=== PATIENT | male | born 1975 | race African-American/Black ===

== ENCOUNTER 2020-04-15 19:01 | Inpatient (IN) ==
[2020-04-15] MEDS ORDERED: IOPAMIDOL 100 ML BOTTLE IV ONE (19:02)
[2020-04-15] MEDS ORDERED: PHENobarb/HYOSCY/ATROPINE/SCOP 1 DOSE BOTTLE PO ONE (19:30)
[2020-04-15] MEDS ORDERED: ONDANSETRON 4 MG/2 ML VIAL IV ONE (19:30)
[2020-04-15] MEDS ORDERED: PANTOPRAZOLE 40 MG VIAL IV ONE (19:30)
--- NOTE | 2020-04-15 19:50 | XRay Report ---
INDICATION: Chest Pain TECHNIQUE: AP portable upright chest x-ray COMPARISON: Previous examination dated 10/23/2016 FINDINGS: Lungs:Lungs are negative. No focal pulmonary parenchymal infiltrate or mass Heart, vascular:No significant cardiomegaly. Pulmonary vascularity is normal. No pulmonary edema or pulmonary congestion Mediastinum, panfilo:No mediastinal widening. No hilar mass Pleura:No pleural fluid. No pleural-based mass or calcification Skeletal:Negative. IMPRESSION: Negative AP chest x-ray. No interval change Interpreted and Authenticated by: Ezequiel Suarez 04/15/20
--- NOTE | 2020-04-15 19:51 | Emergency Department Note ---
Chest Pain HPI - General Chief Complaint: Chest Pain Stated Complaint: chest pain Time Seen by Provider: 04/15/20 19:05 Source: patient Mode of arrival: ambulatory Limitations: no limitations - History of Present Illness HPI Narrative: 44-year-old male with epigastric pain that is severe. It doubled him over today after taking his high blood pressure medicines. He has not been able to eat because of the severe pain. He is able to drink some water though. He has not been taking NSAIDs because his nurse practitioner at the [facility] clinic thought he might have an ulcer. He has been losing weight so they are concerned about gallbladder issues as well. He was seen the day before yesterday for similar problem but his pain had resolved by the time he got here. No work-up was done then. I reviewed that note from Dr. Musa. No nausea vomiting diarrhea. He has never had an upper endoscopy before - Related Data Home Medications Medication Instructions Recorded Confirmed Omeprazole [PriLOSEC] 20 mg PO DAILY 04/15/20 04/15/20 Sucralfate [Carafate] 1 gm PO QID 04/15/20 04/15/20 methylPREDNISolone [Medrol Dose 4 mg PO DAILY 04/15/20 04/15/20 Pack] Previous Rx's Medication Instructions Recorded Lisinopril/Hctz 20/12.5MG 2 tab PO DAILY #60 tab 04/14/20 [Zestoretic 20/12.5MG] Allergies Allergy/AdvReac Type Severity Reaction Status Date / Time No Known Drug Allergies Allergy Verified 04/13/20 22:50 Review of Systems All systems ED: reviewed and negative except as stated. Chest Pain PMH - Past Medical History Attestation: Yes: The following information was validated with the patient. [facility] Narrative: Family History (Last Reviewed 03/03/19 @ 18:13 by Claudine Martinez PA-C) Mother Diabetes mellitus Obesity Coronary arteriosclerosis Hypertensive disorder Brother Obesity Medical History (Last Reviewed 03/03/19 @ 18:13 by Claudine Martinez PA-C) Skin tag (Chronic) Allergic rhinitis (Chronic) Essential hypertension (Chronic) Disorder of tympanic membrane (Chronic) Obesity (Chronic) Diabetes mellitus (Chronic) Vasectomy evaluation (Chronic) Past Surgical History (Last Reviewed 03/03/19 @ 18:13 by Claudine Martinez PA-C) History of appendectomy (Chronic) Medical history: Reports: hypertension - Social History smoking status: Never smoker Physical Exam Overweight male no acute distress resting. Alert oriented able to answer questions appropriately. Normocephalic atraumatic. Conjunctive are clear sclerae white nonicteric. No nasal discharge or congestion. Oropharynx is pink and moist. Neck is supple without lymphadenopathy or thyromegaly. Heart is regular rate and rhythm no murmur appreciated. Lungs clear to auscultation bilaterally without wheezes rales rhonchi or respiratory distress. Abdomen is soft nontender nondistended except for the epigastrium which is mildly tender. No Parsons sign. No CVA tenderness. No peritoneal signs or guarding. No pedal edema. +2 radial pulse. Limitations: no limitations Course Vital Signs Temperature 98.1 F 04/15/20 19:02 Pulse Rate 91 H 04/15/20 19:02 Respiratory Rate 18 04/15/20 19:02 Blood Pressure 133/89 04/15/20 19:02 Pulse Oximetry (%) 98 04/15/20 19:02 Temperature 98.1 F 04/15/20 19:02 Pulse Rate 65 04/15/20 22:43 Respiratory Rate 22 04/15/20 22:43 Blood Pressure 127/83 04/15/20 22:31 Pulse Oximetry (%) 96 04/15/20 22:43 Chest Pain - Lab Data Lab results reviewed: Yes I reviewed the patient's lab results. Result diagrams: 04/15/20 19:30 04/15/20 19:30 Lab Results 04/15/20 04/15/20 04/15/20 Range/Units 19:30 19:30 19:30 WBC 11.6 H (4.50-11.00) K/mcL RBC 4.18 L (4.63-6.08) M/mcL Hgb 12.9 L (13.7-17.5) g/dL Hct 39.8 L (40.1-51.0) % MCV 95.2 (80.0-100.0) fL MCH 30.9 (26.0-34.0) pg MCHC 32.4 (31.0-36.0) g/dL RDW 12.8 (11.5-14.5) % Plt Count 356 (140-440) K/mcL MPV 11.0 H (7.4-10.4) fL Gran % 76.9 (38.0-78.0) % Lymph % (Auto) 14.9 L (15.5-49.0) % [place] % (Auto) 8.0 (1.0-12.0) % Eos % (Auto) 0 (0.0-7.0) % Baso % (Auto) 0.2 (0.0-2.0) % Gran # 8.95 H (1.80-8.00) K/mcL Lymph # (Auto) 1.74 (1.50-4.80) K/mcL [place] # (Auto) 0.93 H (0.10-0.90) K/mcL Eos # (Auto) 0 (0.00-0.70) K/mcL Baso # (Auto) 0.02 (0.00-0.30) K/mcL VBG Lactic Acid (0.5-2.0) mmol/L Sodium 141 (133-145) mmol/L Potassium 4.0 (3.3-5.1) mmol/L Chloride 101 (96-108) mmol/L Carbon Dioxide 23 (22-30) mmol/L Anion Gap 17.0 H (8-16) BUN 15 (6-20) mg/dl Creatinine 1.3 H (0.7-1.2) mg/dl GFR Calculation 66 Glucose 107 H (70-105) mg/dL Calcium 9.8 (8.6-10.4) mg/dl Total Bilirubin 0.2 (0.0-1.0) mg/dL AST 14 (0-37) U/l ALT 9 (0-40) U/l Alkaline Phosphatase 67 (39-117) U/L Total Creatine Kinase 104 (24-195) IU/L CK-MB (CK-2) 1.5 (0-4.9) ng/ml Myoglobin 33 (28-72) ng/ml Troponin T < 0.01 (0-0.03) ng/ml Total Protein 7.8 (5.9-8.4) gm/dL Albumin 4.3 (3.2-5.2) gm/dL Globulin 3.5 (2.2-3.7) gm/dL Albumin/Globulin Ratio 1.2 (1.0-2.3) Lipase (7-60) U/L 04/15/20 04/15/20 Range/Units 19:32 19:32 WBC (4.50-11.00) K/mcL RBC (4.63-6.08) M/mcL Hgb (13.7-17.5) g/dL Hct (40.1-51.0) % MCV (80.0-100.0) fL MCH (26.0-34.0) pg MCHC (31.0-36.0) g/dL RDW (11.5-14.5) % Plt Count (140-440) K/mcL MPV (7.4-10.4) fL Gran % (38.0-78.0) % Lymph % (Auto) (15.5-49.0) % [place] % (Auto) (1.0-12.0) % Eos % (Auto) (0.0-7.0) % Baso % (Auto) (0.0-2.0) % Gran # (1.80-8.00) K/mcL Lymph # (Auto) (1.50-4.80) K/mcL [place] # (Auto) (0.10-0.90) K/mcL Eos # (Auto) (0.00-0.70) K/mcL Baso # (Auto) (0.00-0.30) K/mcL VBG Lactic Acid 1.5 (0.5-2.0) mmol/L Sodium (133-145) mmol/L Potassium (3.3-5.1) mmol/L Chloride (96-108) mmol/L Carbon Dioxide (22-30) mmol/L Anion Gap (8-16) BUN (6-20) mg/dl Creatinine (0.7-1.2) mg/dl GFR Calculation Glucose (70-105) mg/dL Calcium (8.6-10.4) mg/dl Total Bilirubin (0.0-1.0) mg/dL AST (0-37) U/l ALT (0-40) U/l Alkaline Phosphatase (39-117) U/L Total Creatine Kinase (24-195) IU/L CK-MB (CK-2) (0-4.9) ng/ml Myoglobin (28-72) ng/ml Troponin T (0-0.03) ng/ml Total Protein (5.9-8.4) gm/dL Albumin (3.2-5.2) gm/dL Globulin (2.2-3.7) gm/dL Albumin/Globulin Ratio (1.0-2.3) Lipase 19 (7-60) U/L - Radiology Data Radiology results reviewed: Yes I reviewed the patient's radiology results. Chest x-ray shows no acute change CT scan of the abdomen and pelvis shows acute cholelithiasis with pericolic stranding suggestive of cholecystitis. CBD is normal - EKG Data EKG attestation: Yes I reviewed and interpreted this EKG. EKG results narrative: EKG shows ST elevation upsloping in leads V1 and V2. Machine read calls it benign early repolarization which is likely is. It may be criteria for LVH as well. Sinus rhythm Disposition Pt seen by COMPO CONVEYOR OPERATOR/PA only: No Clinical Impression: Cholelithiasis and acute cholecystitis without obstruction Summary: Epigastric/chest pain likely GI given that it is worse with him eating certain things like pills food etc. Consider ulcer/gastritis versus esophagitis versus musculoskeletal versus cardiac versus pulmonary. EKG is with likely benign early repolarization however this could be cardiac as he does have risk factors of prediabetes hypertension and obesity. Gave Zofran Protonix and GI cocktail. Chest x-ray is unrevealing Medicines did not help. He is still complaining of severe belly pain between his umbilicus and epigastric area. Troponin is negative as is lipase he does however have a leukocytosis. CT scan of the abdomen pelvis with contrast is ordered. Dilaudid for pain. Start IV fluids He did get some relief with Dilaudid. CT scan shows cholelithiasis with cholecystitis. Discussed case with Dr. Pawel Chery, general surgeon. He agreed to accept the patient for further care and evaluation in the hospital. Likely will have his gallbladder out tomorrow morning. I will write holding orders. He asked for some food as he had not ate all day-he will be n.p.o. after midnight. We brought him a lunch box but his stomach pain and nausea would not let him eat Disposition: Xfer As Inpt ([facility]) Condition: Fair Referrals: [facility] [Primary Care Provider] - Pawel Chery MD [Physician] -
[2020-04-15 20:43] LABS: Myoglobin 33 ng/ml (28-72)
[2020-04-15 20:45] LABS: ALT/SGPT 9 U/l (0-40); AST/SGOT 14 U/l (0-37); Albumin 4.3 gm/dL (3.2-5.2); Albumin/Globulin Ratio 1.2 (1.0-2.3); Alkaline Phosphatase 67 U/L (39-117); Bilirubin,Total 0.2 mg/dL (0.0-1.0); Blood Urea Nitrogen 15 mg/dl (6-20); Calcium 9.8 mg/dl (8.6-10.4); Carbon Dioxide 23 mmol/L (22-30); Chloride 101 mmol/L (96-108); Creatine Kinase 104 IU/L (24-195); Creatine Kinase MB 1.5 ng/ml (0-4.9); Globulin 3.5 gm/dL (2.2-3.7); Glomerular Filtration Rate 66; Glucose 107 mg/dL (70-105)
[2020-04-15 20:47] LABS: Basophils # (Auto) 0.02 K/mcL (0.00-0.30); Basophils % (Auto) 0.2 % (0.0-2.0); Eosinophils # (Auto) 0 K/mcL (0.00-0.70); Eosinophils % (Auto) 0 % (0.0-7.0); Granulocytes % (Auto) 76.9 % (38.0-78.0); Hematocrit 39.8 % (40.1-51.0); Hemoglobin 12.9 g/dL (13.7-17.5); Lymphocytes # (Auto) 1.74 K/mcL (1.50-4.80); Lymphocytes % (Auto) 14.9 % (15.5-49.0); Mean Cell Volume 95.2 fL (80.0-100.0); Mean Corpuscular HGB Conc 32.4 g/dL (31.0-36.0); Monocytes # (Auto) 0.93 K/mcL (0.10-0.90); Platelet Count 356 K/mcL (140-440); RBC 4.18 M/mcL (4.63-6.08); Red Cell Distribution Width 12.8 % (11.5-14.5); WBC 11.6 K/mcL (4.50-11.00)
[2020-04-15] MEDS ORDERED: 0.9 % SODIUM CHLORIDE 1,000 ML IV ONE (20:49)
[2020-04-15] MEDS: HYDROmorphone 0.5 MG/0.5 ML SYRINGE IV PRN (21:03)
[2020-04-15] MEDS ORDERED: ONDANSETRON 4 MG/2 ML VIAL IV PRN (23:12)
[2020-04-16] MEDS: HYDROmorphone 0.5 MG/0.5 ML SYRINGE IV PRN ×3 (02:25→09:00)
--- NOTE | 2020-04-16 05:57 | Cat Scan Report ---
INDICATION: severe epigastric pain COMPARISON: CT scan dated 02/21/2012 TECHNIQUE: Axial images were obtained through the abdomen and pelvis. Sagittally and coronally reformatted images. 80 mL Isovue 370 injected intravenously. Oral contrast was not administered FINDINGS: The examination was initially interpreted by [facility] Lung bases:Negative. No pulmonary parenchymal nodule. No pleural fluid or pericardial fluid Liver:Negative. No focal intrahepatic mass. No focal abnormality. Liver contour is smooth. No evidence for cirrhosis Gallbladder, bilary:Gallbladder is abnormal. There are calcified gallstones. There is mild gallbladder wall thickening and cholecystitis is possible. Gallbladder ultrasound may be of benefit. No dilated bile ducts. No evidence for choledocholithiasis Spleen:No splenomegaly. Normal enhancement of splenic and portal veins. Pancreas:No pancreatic mass. No peripancreatic abnormality Adrenal glands:Negative Kidneys, ureters, bladder:No solid or cystic renal mass. No hydronephrosis. No obstructing calculi. There is no hydroureter. No ureteral stone No bladder calculi or detectable mass Gastrointestinal:No detectable colonic mass. There is no diverticulitis. Small bowel is negative. No mechanical small bowel obstruction. Stomach and duodenum are unremarkable Appendix: The appendix is removed Vascular:Negative abdominal aorta. Superior mesenteric artery and celiac trunk are normal. Normal opacification of the inferior mesenteric artery Lymphatic:No retroperitoneal or mesenteric adenopathy Mesentery, peritoneum: No free intraperitoneal fluid. No mesenteric or retroperitoneal mass. Reproductive:No significant prostatic enlargement Musculoskeletal:No lumbar compression fractures. Sacrum and pelvis are negative. No hip fracture. IMPRESSION: 1. Cholelithiasis. Mild gallbladder wall thickening. Cholecystitis is not excluded. 2. Previous appendectomy 3. Otherwise negative CT scan The exam was performed using radiation dose optimization techniques including, but not limited to, automated exposure control, adjustment of the mA and/or kV according to patient size and use of iterative reconstruction technique. Interpreted and Authenticated by: Ezequiel Suarez 04/16/20
[2020-04-16] MEDS ORDERED: SCOPOLAMINE 1 PATCH PATCH TOPICAL PRN (09:55)
[2020-04-16] MEDS ORDERED: IPRATROPIUM/ALBUTEROL 3 ML AMPUL.NEB NEB PRN ×2 (09:55→15:10)
[2020-04-16] MEDS: 0.9 % SODIUM CHLORIDE 1,000 ML IV SCH ×4 (10:15→18:40)
[2020-04-16 11:23] LABS: Appearance,Urine CLEAR; Bacteria,Urine 0 /hpf (0); Bilirubin,Urine NEG (NEG); Color,Urine STRAW; Culture Indicated,Urine NO; Glucose,Urine (UA) NEGATIVE (NEG); Ketones,Urine NEG (NEG); Leukocyte Esterase,Urine NEG /uL (NEG); Mucus,Urine FEW /hpf (0); Nitrate,Urine NEG (NEG); Protein,Urine NEG (NEG); Specific Gravity,Urine 1.016 (1.000-1.035); Urine Blood 0.03 mg/dL (<0.03); Urine RBC 2 /hpf (0-1); Urine Squamous Epithelial Cell < 1 /hpf (0-4); Urine WBC < 1 /hpf (0-4); Urobilinogen,Urine NEG (NEG)
[2020-04-16] MEDS ORDERED: PIPERACILLIN SODIUM/TAZOBACTAM 3.375 GM in DEXTROSE 5% IN WATER 50 ML IV SCH (14:30)
[2020-04-16] MEDS ORDERED: LIDOCAINE HCL/PF 100 MG/5 ML SYRINGE IV ONE (14:55)
[2020-04-16] MEDS ORDERED: ONDANSETRON 4 MG/2 ML VIAL IV ONE (14:55)
[2020-04-16] MEDS ORDERED: fentaNYL 250 MCG/5 ML VIAL IV ONE (14:55)
[2020-04-16] MEDS ORDERED: MIDAZOLAM 5 MG/5 ML VIAL IV ONE (14:55)
[2020-04-16] MEDS ORDERED: DEXAMETHASONE 10 MG/ML VIAL IV ONE (14:55)
[2020-04-16] MEDS ORDERED: METOPROLOL TARTRATE 5 MG/5 ML VIAL IV ONE (14:55)
[2020-04-16] MEDS ORDERED: ROCURONIUM 10 MG/ML ML IV ONE (14:55)
[2020-04-16] MEDS ORDERED: PROPOFOL 200 MG/20 ML VIAL IV ONE (14:55)
[2020-04-16] MEDS ORDERED: MEPERIDINE 25 MG/ML SYRINGE IV PRN (15:10)
[2020-04-16] MEDS ORDERED: diphenhydrAMINE 50 MG/ML VIAL IV PRN (15:10)
[2020-04-16] MEDS ORDERED: KETOROLAC 30 MG/ML VIAL IV PRN (15:10)
[2020-04-16] MEDS ORDERED: FLUMAZENIL 0.1 MG/ML ML IV PRN (15:10)
[2020-04-16] MEDS ORDERED: ONDANSETRON 4 MG/2 ML VIAL IV PRN ×2 (15:10→18:29)
[2020-04-16] MEDS ORDERED: PROMETHAZINE 25 MG/ML VIAL IV PRN (15:10)
[2020-04-16] MEDS ORDERED: HYDROmorphone 0.5 MG/0.5 ML SYRINGE IV PRN (15:10)
[2020-04-16] MEDS ORDERED: LACTATED RINGERS 250 ML IV PRN (15:10)
[2020-04-16] MEDS ORDERED: NALOXONE HCL 0.4 MG/ML VIAL IV PRN (15:10)
[2020-04-16] MEDS ORDERED: LACTATED RINGERS 1,000 ML IV SCH (15:15)
--- NOTE | 2020-04-16 16:45 | General Surgery Procedure Note ---
Date of procedure: Note initiated : 04/16/20 at 4:41 pm Service Date, if different from initiated Date: [] Pre-op diagnosis: ACUTE CHOLECYSTITIS WITH CHOLELITHIASIS Post-op diagnosis: same Procedure: LAPAROSCOPIC CHOLECYSTECTOMY Findings: SEVERE INFLAMMATION OF GALLBLADDER WITH ADHESIONS AND LARGE STONES Grafts/Implants: RAJINDER DRAIN X1 Anesthesia: GETA Estimated blood loss: 50 Pathology: other (GALLBLADDER) Condition: stable Disposition: PACU
[2020-04-16] MEDS: fentaNYL 100 MCG/2 ML VIAL IV PRN ×2 (17:00→17:10)
[2020-04-16] MEDS ORDERED: ACETAMINOPHEN 1,000 MG in PREMIX 1 BAG IV SCH (17:15)
[2020-04-16] MEDS ORDERED: 0.9 % SODIUM CHLORIDE 1,000 ML IV SCH (18:29)
[2020-04-16] MEDS: METOCLOPRAMIDE 10 MG/2 ML VIAL IV SCH ×2 (19:00→23:55)
[2020-04-16] MEDS: ACETAMINOPHEN 1,000 MG/100 ML BOTTLE IV SCH (19:05)
[2020-04-16] MEDS: SUCRALFATE 1 GM TABLET PO SCH ×2 (19:05→21:48)
[2020-04-16] MEDS: oxyCODONE HCL 5 MG TABLET PO PRN ×2 (19:08→23:15)
[2020-04-16] MEDS: PIPERACILLIN SODIUM/TAZOBACTAM 3.375 GM in DEXTROSE 5% IN WATER 50 ML IV SCH (21:47)
[2020-04-16] MEDS: INSULIN LISPRO 1 UNIT/0.01 ML UNIT SQ SCH (21:48)
[2020-04-16] MEDS: MUPIROCIN OINT 2% 22GM NARES SCH (23:30)
[2020-04-17] MEDS: ACETAMINOPHEN 1,000 MG/100 ML BOTTLE IV SCH ×3 (00:50→12:32)
[2020-04-17] MEDS: PIPERACILLIN SODIUM/TAZOBACTAM 3.375 GM in DEXTROSE 5% IN WATER 50 ML IV SCH ×4 (03:10→23:21)
[2020-04-17] MEDS: oxyCODONE HCL 5 MG TABLET PO PRN ×3 (03:17→21:32)
[2020-04-17] MEDS: METOCLOPRAMIDE 10 MG/2 ML VIAL IV SCH ×4 (06:09→23:21)
[2020-04-17 06:51] LABS: Basophils # (Auto) 0.01 K/mcL (0.00-0.30); Basophils % (Auto) 0.1 % (0.0-2.0); Eosinophils # (Auto) 0 K/mcL (0.00-0.70); Eosinophils % (Auto) 0 % (0.0-7.0); Granulocytes % (Auto) 83.8 % (38.0-78.0); Hematocrit 35.1 % (40.1-51.0); Hemoglobin 11.2 g/dL (13.7-17.5); Lymphocytes # (Auto) 1.27 K/mcL (1.50-4.80); Lymphocytes % (Auto) 10.5 % (15.5-49.0); Mean Cell Volume 94.6 fL (80.0-100.0); Mean Corpuscular HGB Conc 31.9 g/dL (31.0-36.0); Mean Platelet Volume 10.7 fL (7.4-10.4); Monocytes # (Auto) 0.68 K/mcL (0.10-0.90); Monocytes % (Auto) 5.6 % (1.0-12.0); Platelet Count 341 K/mcL (140-440); RBC 3.71 M/mcL (4.63-6.08); Red Cell Distribution Width 12.7 % (11.5-14.5); WBC 12.1 K/mcL (4.50-11.00)
[2020-04-17 07:36] LABS: ALT/SGPT 22 U/l (0-40); AST/SGOT 23 U/l (0-37); Albumin 3.7 gm/dL (3.2-5.2); Albumin/Globulin Ratio 1.2 (1.0-2.3); Alkaline Phosphatase 56 U/L (39-117); Bilirubin,Direct < 0.2 mg/dL (0.0-0.3); Bilirubin,Total 0.5 mg/dL (0.0-1.0); Blood Urea Nitrogen 11 mg/dl (6-20); Calcium 8.4 mg/dl (8.6-10.4); Carbon Dioxide 24 mmol/L (22-30); Chloride 100 mmol/L (96-108); Glomerular Filtration Rate 81; Glucose 159 mg/dL (70-105); Lactate Dehydrogenase 163 U/L (94-250); Phosphorous 4.1 mg/dL (2.7-4.5); Triglycerides 86 mg/dl (<150); Uric Acid 3.7 mg/dL (2.5-8.0)
[2020-04-17] MEDS: 0.9 % SODIUM CHLORIDE 1,000 ML IV SCH ×2 (08:24→20:26)
[2020-04-17] MEDS: INSULIN LISPRO 1 UNIT/0.01 ML UNIT SQ SCH ×4 (08:26→20:25)
[2020-04-17] MEDS: MUPIROCIN OINT 2% 22GM NARES SCH ×2 (08:27→20:24)
[2020-04-17] MEDS: PANTOPRAZOLE 40 MG VIAL IV SCH ×2 (08:27→17:12)
[2020-04-17] MEDS: SUCRALFATE 1 GM TABLET PO SCH ×4 (08:27→20:24)
[2020-04-17] MEDS ORDERED: OMEPRAZOLE 20 MG CAPSULE PO SCH (09:00)
--- NOTE | 2020-04-17 14:27 | General Surgery Progress Note ---
SUBJECTIVE Subjective Patient information: Note initiated : 04/17/20 at 2:24 pm Service Date, if different from initiated Date: [] Patient: Laura Montanez a 44 y/o M admitted on 04/15/20 for Cholecystitis. Chief Complaint: [patient states that he feels better. He still has significant incisional pain. He has nausea but no vomiting. He has not had flatus so far. His LFTs are normal. White count is 12,100] Constitutional Vitals: Vital Signs Temp Pulse Resp BP Pulse Ox 98.6 F 86 14 119/75 95 04/17/20 12:00 04/17/20 12:00 04/17/20 12:00 04/17/20 12:00 04/17/20 12:00 Period Temp Pulse Resp BP Sys/Horvath Pulse Ox Last 24 Hr 98.1 F-99.0 F 64-90 14-24 102-175/62-97 88-100 Intake and Output 04/17/20 04/17/20 04/17/20 05:59 13:59 21:59 Intake Total 520 1800 Output Total 1040 Balance -520 1800 Intake & Output: Intake & Output 04/17/20 04/17/20 04/17/20 05:59 13:59 21:59 Intake Total 520 1800 Output Total 1040 Balance -520 1800 Intake: IV 200 1200 Sodium Chloride 0.9% 1,000 ml @ 1000 75 mls/hr IV .[id number] GISELL Rx#: [id number] Zosyn 3.375 gm In Dextrose 5% 100 in Water 50 ml @ 100 mls/hr IV Q6H GISELL Rx#:[id number] Oral 320 600 Output: Drainage 140 Right Lower Abdomen SEBASTIAN Drain 140 Void Amount 900 Other: Meal Breakfast Percent of Meal Consumed 100% Feeding Ability Independent Urine Appearance Clear Urine Color Bright Yellow Urine Odor Normal Neck Neck exam: Present full ROM; Absent lymphadenopathy, tenderness and thyromegaly Respiratory Respiratory exam: Present normal respiratory exam and CTAB; Absent rales, rhonchi and wheezes Cardiovascular Cardiovascular exam: Present normal rate and rhythm, RRR, +S1 and +S2; Absent gallop and JVD GI/Abdominal GI/Abdominal exam: Present normal bowel sounds, distended and firm Additional comments: tenderness around port sites; SEBASTIAN drain with bloody drainage; active bowel sounds Extremities Exam Extremities exam: Present normal inspection; Absent pedal edema and tenderness Neurological Exam Neurological exam: Present alert, CN II-XII intact, normal gait and oriented X3; Absent motor sensory deficit A/P Assessment and plan (1) Cholelithiasis and acute cholecystitis without obstruction: Status: Acute Comment: patient is stable and improved. He still has mild nausea so diet will be withheld until tomorrow Time Spent With Patient Time: Total time spent is greater than 50% in coordination of care (as documented) at patient's floor/unit and/or counseling patient:
[2020-04-17] MEDS: MAGNESIUM HYDROXIDE 30 ML ORAL.SUSP PO SCH ×2 (17:39→20:24)
[2020-04-17] MEDS ORDERED: MAGNESIUM HYDROXIDE 30 ML ORAL.SUSP PO ONE (18:00)
[2020-04-18] MEDS: 0.9 % SODIUM CHLORIDE 1,000 ML IV SCH ×3 (01:55→17:20)
[2020-04-18] MEDS: oxyCODONE HCL 5 MG TABLET PO PRN ×3 (05:11→17:58)
[2020-04-18] MEDS: METOCLOPRAMIDE 10 MG/2 ML VIAL IV SCH ×3 (05:12→17:19)
[2020-04-18] MEDS: PIPERACILLIN SODIUM/TAZOBACTAM 3.375 GM in DEXTROSE 5% IN WATER 50 ML IV SCH ×3 (05:12→17:20)
[2020-04-18 06:36] LABS: Basophils # (Auto) 0.05 K/mcL (0.00-0.30); Basophils % (Auto) 0.3 % (0.0-2.0); Eosinophils # (Auto) 0.08 K/mcL (0.00-0.70); Eosinophils % (Auto) 0.5 % (0.0-7.0); Granulocytes % (Auto) 57.3 % (38.0-78.0); Hematocrit 28.2 % (40.1-51.0); Lymphocytes # (Auto) 5.31 K/mcL (1.50-4.80); Lymphocytes % (Auto) 32.2 % (15.5-49.0); Mean Cell Volume 97.6 fL (80.0-100.0); Mean Corpuscular HGB Conc 31.9 g/dL (31.0-36.0); Mean Platelet Volume 10.7 fL (7.4-10.4); Monocytes % (Auto) 9.7 % (1.0-12.0); Platelet Count 286 K/mcL (140-440); RBC 2.89 M/mcL (4.63-6.08); Red Cell Distribution Width 12.7 % (11.5-14.5); WBC 16.5 K/mcL (4.50-11.00)
[2020-04-18 07:00] LABS: ALT/SGPT 19 U/l (0-40); AST/SGOT 16 U/l (0-37); Albumin 3.6 gm/dL (3.2-5.2); Albumin/Globulin Ratio 1.3 (1.0-2.3); Alkaline Phosphatase 51 U/L (39-117); Bilirubin,Direct < 0.2 mg/dL (0.0-0.3); Bilirubin,Total 0.4 mg/dL (0.0-1.0); Blood Urea Nitrogen 10 mg/dl (6-20); Calcium 8.3 mg/dl (8.6-10.4); Carbon Dioxide 26 mmol/L (22-30); Chloride 103 mmol/L (96-108); Globulin 2.7 gm/dL (2.2-3.7); Glomerular Filtration Rate 81; Glucose 96 mg/dL (70-105); Lactate Dehydrogenase 156 U/L (94-250); Triglycerides 130 mg/dl (<150); Uric Acid 3.3 mg/dL (2.5-8.0)
[2020-04-18 07:01] LABS: Phosphorous 2.1 mg/dL (2.7-4.5)
[2020-04-18] MEDS: INSULIN LISPRO 1 UNIT/0.01 ML UNIT SQ SCH ×3 (07:40→17:19)
[2020-04-18] MEDS: PANTOPRAZOLE 40 MG VIAL IV SCH ×2 (07:40→17:19)
[2020-04-18] MEDS: MUPIROCIN OINT 2% 22GM NARES SCH (08:53)
[2020-04-18] MEDS: SUCRALFATE 1 GM TABLET PO SCH ×3 (08:53→17:19)
--- NOTE | 2020-04-18 19:35 | Discharge Summary ---
Discharge Provider Provider Patient information: Note initiated : 04/18/20 at 7:26 pm Service Date, if different from initiated Date: [] Patient: Laura Montanez 44 y/o M admitted on 04/15/20 for Cholecystitis. Chief Complaint: [] Date of admission: 04/15/20 23:31 Discharge date: 04/18/20 Primary care physician: [facility] Admitting clinician: Alanis Chery Attending physician on admission: Alanis Chery Consults: 04/15/20 Consult to Physician [CONS] Stat Comment: Consulting Provider: Alanis Chery Reason For Exam: Physician to Consult Attending physician on discharge: Alanis Chery Discharging clinician: Alanis Chery COURSE Hospital Course Discharge diagnosis: acute cholecystitis with cholelithiasis Reason for admission: acute cholecystitis Procedures: laparoscopic appendectomy Pertinent studies/significant findings: CT of abdomen and pelvis with contrast Upper abdominal ultrasound Complications: none Time Spent with Patient Time attestation: Total time spent providing and/or coordinating discharge services: 45 MIN Time spent: Greater than 30 minutes Physical Examination Vital Signs Vital signs: Temp Pulse Resp BP Pulse Ox 98.9 F 84 16 150/86 97 04/18/20 16:00 04/18/20 16:00 04/18/20 16:00 04/18/20 16:00 04/18/20 16:00 General physical appearance General physical exam: well developed, well nourished and no distress Neck Neck exam: no masses, no bruits, trachea midline and no lymphadenopathy Cardiovascular Cardiovascular exam IM: Present normal rate and rhythm, RRR, +S1 and +S2; Absent gallop and JVD Respiratory Respiratory exam: normal expansion, normal respiratory effort, clear to percussion, clear to auscultation and other Abdomen Abdomen: Present soft, tender (tenderness around port sites and drain site) and bowel sounds (normal active bowel sounds) Integumentary Integumentary: Present no rash, no growths, no abnormal pigmentation and other Neurologic Neurologic: Present normal coordination, normal sensation, deep tendon reflexes and other; Absent disoriented, combative, confused and memory loss Musculoskeletal Musculoskeletal: Present normal gait and normal posture Psychiatric Psychiatric: Present oriented to time, oriented to person, oriented to place, speech is normal, memory intact and other Discharge Plan Patient/Caregiver Discharge Instructions Activity: increase activity as tolerated Diet: Low Fat Instructions: Gallstones (DC) Activity Restrictions/Additional Instructions: no lifting over 20 pounds for 2 weeks Stand Alone Forms: Work/Release Restrictions Prescriptions: New mupirocin 2 % Ointment 1 dose NARES BID Qty: 0 RF: 0 oxycodone 5 mg Tablet 10 mg PO Q4HP PRN (Reason: Per Pain Protocol) Qty: 40 RF: 0 Continued lisinopril-hydrochlorothiazide 1 TAB tablet 2 tab PO DAILY Qty: 60 RF: 0 sucralfate 1 GM tablet 1 gm PO QID RF: 0 omeprazole 20 MG capsule 20 mg PO DAILY RF: 0 methylprednisolone 4 mg tablets,dose pack 4 mg PO DAILY RF: 0 Follow Up Plan Follow up with: Alanis Chery MD [Physician] - (patient to call office tomorrow to make an appointment for 2 weeks) [facility] [Primary Care Provider] - Patient Disposition: Home, Self-Care Care Plan Goals: patient to contact office to change dressings Assessment: patient is discharged home in stable satisfactory condition Prognosis: Good Rehab Potential: Good I certify that the patient requires SNF services: No Overall status at discharge: patient is progressing back to baseline Pending Pending Pending: Resuscitation Status Full Code Diet Full Liquid Diet Start SunApr 16 1706 Diagnostic Test (Pha) (Accu-Chek) 1 each FS ACHS [facility] Last Admin: 04/18/20 17:19 Dose: 1 each Documented by: Admin: 04/18/20 11:14 Dose: 1 each Documented by: Admin: 04/18/20 07:40 Dose: 1 each Documented by: Admin: 04/17/20 20:24 Dose: 1 each Documented by: Admin: 04/17/20 17:13 Dose: 1 each Documented by: Admin: 04/17/20 12:31 Dose: 1 each Documented by: Admin: 04/17/20 08:26 Dose: 1 each Documented by: Admin: 04/16/20 21:48 Dose: 1 each Documented by: PADDY Piperacillin Sod/Tazobactam (Sod 3.375 gm/ Dextrose) 50 mls @ 100 mls/hr IV Q6H [facility]; Protocol Last Infusion: 04/18/20 17:50 Dose: 0 mls/hr Documented by: Admin: 04/18/20 17:20 Dose: 100 mls/hr Documented by: Infusion: 04/18/20 11:46 Dose: 0 mls/hr Documented by: Admin: 04/18/20 11:16 Dose: 100 mls/hr Documented by: Infusion: 04/18/20 05:50 Dose: 0 mls/hr Documented by: ILANALLMoiz Admin: 04/18/20 05:12 Dose: 100 mls/hr Documented by: Infusion: 04/17/20 23:55 Dose: 0 mls/hr Documented by: Admin: 04/17/20 23:21 Dose: 100 mls/hr Documented by: Infusion: 04/17/20 20:26 Dose: 0 mls/hr Documented by: Admin: 04/17/20 17:31 Dose: 100 mls/hr Documented by: Infusion: 04/17/20 13:55 Dose: 0 mls/hr Documented by: Admin: 04/17/20 13:40 Dose: 200 mls/hr Documented by: Infusion: 04/17/20 03:40 Dose: 200 mls/hr Documented by: Admin: 04/17/20 03:10 Dose: 100 mls/hr Documented by: Infusion: 04/16/20 22:17 Dose: 100 mls/hr Documented by: Admin: 04/16/20 21:47 Dose: 100 mls/hr Documented by: PADDY Sodium Chloride (Sodium Chloride 0.9%) 1,000 mls @ 75 mls/hr IV .[id number] GISELL Last Admin: 04/18/20 17:20 Dose: 75 mls/hr Documented by: Infusion: 04/18/20 15:15 Dose: 75 mls/hr Documented by: Admin: 04/18/20 08:53 Dose: Not Given Documented by: Admin: 04/18/20 01:55 Dose: 75 mls/hr Documented by: Infusion: 04/17/20 21:44 Dose: 75 mls/hr Documented by: Admin: 04/17/20 20:26 Dose: Not Given Documented by: Admin: 04/17/20 08:24 Dose: 75 mls/hr Documented by: Infusion: 04/17/20 08:00 Dose: 75 mls/hr Documented by: Admin: 04/16/20 18:40 Dose: 75 mls/hr Documented by: PADDY Insulin Human Lispro (Humalog) 0 unit SQ ACHS GISELL; Protocol Last Admin: 04/18/20 17:19 Dose: Not Given Documented by: Admin: 04/18/20 11:14 Dose: 2 unit Documented by: Admin: 04/18/20 07:40 Dose: Not Given Documented by: Admin: 04/17/20 20:25 Dose: 2 unit Documented by: Admin: 04/17/20 17:13 Dose: Not Given Documented by: Admin: 04/17/20 12:32 Dose: 2 unit Documented by: Admin: 04/17/20 08:26 Dose: 2 unit Documented by: Admin: 04/16/20 21:48 Dose: Not Given Documented by: PADDY Metoclopramide HCl (Reglan) 10 mg IV Q6 [facility] Last Admin: 04/18/20 17:19 Dose: 10 mg Documented by: Admin: 04/18/20 11:15 Dose: 10 mg Documented by: Admin: 04/18/20 05:12 Dose: 10 mg Documented by: Admin: 04/17/20 23:21 Dose: 10 mg Documented by: Admin: 04/17/20 17:12 Dose: 10 mg Documented by: Admin: 04/17/20 12:32 Dose: 10 mg Documented by: Admin: 04/17/20 06:09 Dose: 10 mg Documented by: Admin: 04/16/20 23:55 Dose: 10 mg Documented by: Admin: 04/16/20 19:00 Dose: 10 mg Documented by: PADDY Mupirocin (Bactroban Oint 2%) 1 dose NARES BID GISELL Stop: 04/21/20 20:59 Last Admin: 04/18/20 08:53 Dose: 1 dose Documented by: Admin: 04/17/20 20:24 Dose: 1 dose Documented by: Admin: 04/17/20 08:27 Dose: 1 dose Documented by: Admin: 04/16/20 23:30 Dose: 1 dose Documented by: PADDY Oxycodone HCl (Roxicodone) 10 mg PO Q4HP PRN; Protocol PRN Reason: Per Pain Protocol Last Admin: 04/18/20 17:58 Dose: 10 mg Documented by: Admin: 04/18/20 12:37 Dose: 10 mg Documented by: Admin: 04/18/20 05:11 Dose: 10 mg Documented by: Admin: 04/17/20 21:32 Dose: 10 mg Documented by: Admin: 04/17/20 17:13 Dose: 10 mg Documented by: Admin: 04/17/20 03:17 Dose: 10 mg Documented by: Admin: 04/16/20 23:15 Dose: 10 mg Documented by: Admin: 04/16/20 19:08 Dose: 10 mg Documented by: PADDY Pantoprazole Sodium (Protonix) 40 mg IV BIDAC [facility] Last Admin: 04/18/20 17:19 Dose: 40 mg Documented by: Admin: 04/18/20 07:40 Dose: 40 mg Documented by: Admin: 04/17/20 17:12 Dose: 40 mg Documented by: Admin: 04/17/20 08:27 Dose: 40 mg Documented by: KAHLIL Sucralfate (Carafate) 1 gm PO QID [facility] Last Admin: 04/18/20 17:19 Dose: 1 gm Documented by: Admin: 04/18/20 12:37 Dose: 1 gm Documented by: Admin: 04/18/20 08:53 Dose: 1 gm Documented by: Admin: 04/17/20 20:24 Dose: 1 gm Documented by: Admin: 04/17/20 17:13 Dose: 1 gm Documented by: Admin: 04/17/20 13:40 Dose: 1 gm Documented by: Admin: 04/17/20 08:27 Dose: 1 gm Documented by: Admin: 04/16/20 21:48 Dose: 1 gm Documented by: Admin: 04/16/20 19:05 Dose: 1 gm Documented by: PADDY Shift Summary 04/18/20 15:30 Shift Summary by Emiliana Rogers Addendum entered by Emiliana Rogers R.N. 04/18/20 17:10: SEBASTIAN drain at end of shift emptied 15ml predominately sanguinous drainage. Original Note: Patient A&Ox4, VSS on RA. Patient has Laparoscopic Cholecystectomy on 04/16. 3 Incision sites with very small old sanguinous drainage under Tegaderm and 1 SEBASTIAN drain with serosanguineous output. Patient tolerating Full Liquid diet with no complaints of nausea. Voiding in urinal. Up with SBA. IV to Right wrist infusing NS @75 ml/hr. Patient had bowel movement last night and is passing gas. Medicated for pain x1 with Roxicodone. CHG bath complete. MRSA decolonization started on 04/16 pm. Will update at bedside. Initialized on 04/18/20 15:30 - END OF NOTE
[2020-04-18] MEDS ORDERED: oxyCODONE (PP) 5MG TABLET (#4) PO ONE ×2 (20:49→21:07)
--- NOTE | 2020-04-19 13:12 | Surgical Pathology Report ---
HISTOLOGY SPECIMEN MICROSCOPIC DIAGNOSIS GALLBLADDER, CHOLECYSTECTOMY: -- CHRONIC CHOLECYSTITIS WITH CHOLELITHIASIS. (EBD:adj) PROCEDURAL IMPRESSION Cholecystitis. GROSS DESCRIPTION Received in formalin labeled gallbladder, is a cholecystectomy specimen measuring 8 x 3.5 x 3 cm. The serosal surface is predominately white-angeles and smooth with a few areas of hyperemia. The hepatic bed region measures 6.5 x 3 cm. There are two clips present including one on the cystic duct. Upon opening the specimen is filled with green bile and yellow-angeles multifaceted firm stones with maximum dimensions ranging from 0.3 to 2 cm. The mucosal surface is green-angeles and velvety and the wall thickness is up to 0.5 cm. Qual Research Manager sections submitted in one cassette. (RLF:adj) Electronically Signed by: Cinthia Concepcion M.D.
--- NOTE | 2020-05-04 15:20 | Operative Note ---
DATE OF OPERATION: 04/16/2020 PREOPERATIVE DIAGNOSES: Acute cholecystitis with cholelithiasis. POSTOPERATIVE DIAGNOSES: Acute cholecystitis with cholelithiasis. PROCEDURE: Laparoscopic cholecystectomy. SURGEON: Alanis Chery M.D. FINDINGS: Severe inflammation of the gallbladder with adhesions and large stone. DESCRIPTION OF PROCEDURE: Under general anesthesia, the patient's abdomen was prepped and draped in a sterile field. Supraumbilical incision was made. Veress needle was inserted. Abdomen was insufflated with 3 liters of CO2. A 12 mm port was placed. Laparoscope was placed. Under videoscopic guidance, a 12 mm port and two 5 mm ports were placed in the right subcostal region. The gallbladder was grasped and positioned. The patient was positioned in deep reverse Trendelenburg positioned. Cystic duct was dissected. There were extensive adhesions to the gallbladder, and these were taken down with electrocautery and blunt dissection until the duct was definitively identified. Cystic artery branch was followed onto the wall of the gallbladder. Cystic duct was transected using an Endo HILARIA stapler because of his severe inflammation and thickness. Cystic artery was clipped with four clips and divided. The gallbladder was then from the infrahepatic bed using electrocautery. The gallbladder was placed in an Endopouch and retrieved. Irrigation was carried out. Hemostasis in the bed was achieved with electrocautery. Two sheets of Surgicel were placed in the bed, and the Juan M drain was placed in the subhepatic space. It was brought out through the most lateral port site. CO2 was allowed to escape from the abdomen and the ports were removed. Fascia at the umbilicus was closed with 0 Vicryl. Skin incisions were closed with minh. The drain was secured with 2-0 nylon. Tegaderm dressings were placed. The patient was awakened from anesthesia uneventfully, transferred to a bed, and taken to the postanesthetic care unit in stable, satisfactory condition. LCS:raúl Job ID: [id number] Doc ID: [id number] Alanis Chery M.D.
== END 2020-04-18 20:08 | disposition home or self-care (01) | DRG 419 ==
LOC: MEDSUR 19:01 → ED 19:01 → OBSVTOIN 23:31 → MEDSUR 23:31
PROVIDERS: ADMIT Family Medicine Adult Medicine; ATTEND Family Medicine Adult Medicine